=== PATIENT | male | born 1995 | race Caucasian/White ===

== ENCOUNTER 2019-11-08 16:40 | Emergency (ER) | payer OTHER, SELFPAY ==
--- NOTE | 2019-11-08 16:45 | ED.GENADULT ---
HPI - General Adult General Chief complaint: Back Pain/Injury Stated complaint: back pain Time Seen by Provider: 11/08/19 17:03 Source: patient Mode of arrival: ambulatory Limitations: no limitations History of Present Illness HPI narrative: 24-year-old male patient presents to the [facility] with complaints of lower back pain for the past 2 days. Patient states he does have a known lower bulging disc that he had an MRI for about a year ago. Patient states he has had no problems with the bulging disc until recently. Patient denies any numbness or tingling down the legs. Patient denies any loss of bowel or bladder control. Patient states he has been taking Aleve for his symptoms so far. Denies any heat. Related Data Home Medications Medication Instructions Recorded Confirmed naproxen sodium 220 mg tablet 220 mg PO Q12H PRN 08/31/19 11/08/19 Allergies Allergy/AdvReac Type Severity Reaction Status Date / Time No Known Allergies Allergy Unverified 11/08/19 16:56 Review of Systems Review of Systems: Narrative: CONSTITUTIONAL: Denies fever, chills, or sweats. EYES: Denies visual changes, redness, or discharge. ENT: Denies rhinorrhea, congestion, sore throat, or otalgia. CARDIOVASCULAR: Denies chest pain, palpitations, or edema. RESPIRATORY: Denies cough or dyspnea. GASTROINTESTINAL: Denies abdominal pain, nausea, vomiting, or diarrhea. GENITOURINARY: Denies dysuria or hematuria. SKIN: Denies rash or itching. MUSCULOSKELETAL: Positive low back pain, denies joint pain, or myalgia. NEUROLOGIC: Denies headache, numbness, or weakness. PSYCHIATRIC: Denies anxiety or depression. [facility] Past Medical History Medical History Depression GERD (gastroesophageal reflux disease) Family History Family History Mother Hypertension Anemia Father Diabetes mellitus Hypertension Grandparent Diabetes mellitus Heart disease Grandparent , Age 67 of [place] Myocardial infarct Social History Social History Years smoked: 8 Tobacco type: e-cigarettes Second hand tobacco smoke exposure: No Alcohol intake: current Drinks per week: 2 Substance use: never Gender identity (if verbalized by the patient): Male Comments At the time of my signature I agree with nursing past medical history, surgical, social, and family history. There is no relevant family history pertinent to the presenting complaint. Exam Narrative: Exam Narrative: GENERAL: Well-appearing, well-nourished, and in no acute distress. HEAD: Normocephalic, atraumatic. EYES: PERRLA and EOMI. ENT: Nares clear, no rhinorrhea or epistaxis. Mucous membranes moist. NECK: Supple. No lymphadenopathy CHEST: Clear to auscultation. No respiratory distress. HEART: Regular rate and rhythm. No murmur heard. Normal peripheral pulses. ABDOMEN: Soft, nontender, nondistended, normal active bowel sounds. EXTREMITIES: Normal range of motion. No edema. BACK: Patient is able to ambulated without assistance. Pt is seated on the stretcher in no obvouis distress. No surface trauma noted. muscle tenderness to Palpation noted to the lower lumbar on bilateral sides of the spine.. No spasm or mass. No step-offs or deformity noted to the cervical, thoracic or lumbar spine to firm Palpation at the midline. No CVA tenderness to percussion. No saddle anesthesia. ROM: able to stand erect. Normal flexion, extension, Lateral bending and rotation without limitation or complaint of pain. SKIN: Warm, dry, no rash. NEURO: No focal deficits. Alert and oriented x3. Course Vital Signs Vital signs: Vital Signs Temperature 36.9 C 11/08/19 16:53 Pulse Rate 70 11/08/19 16:53 Respiratory Rate 16 11/08/19 16:53 Blood Pressure 157/92 H 11/08/19 16:53 Pulse Oximetry 100 11/08/19 16:53 Temperature 36.9 C
[2019-11-08 16:53] VITALS: BP 157/92; PULSE 70; RESP 16; TEMP 36.9; O2SAT 100
== END 2019-11-08 17:14 | disposition home or self-care (01) ==
PROVIDERS: Emergency Provider Nurse Practitioner Family
DX: M54.5 Low back pain (principal); F17.200 Nicotine dependence, unspecified, uncomplicated; K21.9 Gastro-esophageal reflux disease without esophagitis
CPT/HCPCS: 99203; G0463

== ENCOUNTER → 2019-11-11 12:39 | Outpatient (CLI) | payer OTHER, SELFPAY ==
--- NOTE | ~2019-11-11 | XR_ITS ---
LUMBAR SPINE INDICATION: Back pain for 2 weeks TECHNIQUE: 3 views lumbar spine COMPARISON: None FINDINGS: No fracture, subluxation or dislocation. No evidence for spondylolysis or spondylolisthesi s. Vertebral bodies and disk spaces are preserved. Sacral foramen are symmetric. IMPRESSION: 1: No acute abnormality of the lumbar spine identified. Reviewed, dictated and finalized at location A.
== END ==
LOC: EXPCRAD 12:56
PROVIDERS: PCP Emergency Medicine; Visit Provider Emergency Medicine
DX: M54.5 Low back pain (principal)
CPT/HCPCS: 72100

== ENCOUNTER 2022-06-27 08:40 | Emergency (ER) | payer OTHER, SELFPAY ==
--- NOTE | ~2022-06-27 | XR_ITS ---
EXAMINATION: XR chest 1V portable DATE: 06/27/2022 09:03 INDICATION: Cough and fever. TECHNIQUE: A single frontal view of the chest was obtained. COMPARISON: None. FINDINGS: There is no pneumonia, pleural effusion, pneumothorax. The heart size is normal. IMPRESSION: 1. No acute cardiopulmonary disease. Reviewed, dictated and finalized at location A. [facility] [employer]
[2022-06-27 08:48] VITALS: BP 164/94; PULSE 128; RESP 24; TEMP 39.1; O2SAT 96
--- NOTE | 2022-06-27 08:51 | ECG_ITS ---
Measurements Intervals [place] Rate: 121 P: 32 IA: 147 QRS: 62 QRSD: 88 T: 44 QT: 292 QTc: 415 Interpretive Statements SINUS TACHYCARDIA DELAYED PRECORDIAL R/S TRANSITION ABNORMAL ECG NO PREVIOUS ECG AVAILABLE FOR COMPARISON Electronically Signed On 06-27-2022 9:32:43 [employer] by Oliverio Perry D.O.
[2022-06-27] MEDS: ACETAMINOPHEN 500 MG TABLET 1000 MG PO (08:56)
--- NOTE | 2022-06-27 09:23 | ED.GENADULT ---
HPI - General Adult General Chief complaint: Fever Stated complaint: cough Time Seen by Provider: 06/27/22 08:42 Source: RN notes reviewed History of Present Illness HPI narrative: Patient presents emergency room from home for upper respiratory infection symptoms. Patient states symptoms again 2 days ago. States he has had a cough is productive of clear sputum as well as rhinorrhea and a fever. He states that he does have some chest pain with coughing but no pain at rest he denies any ear pain throat pain shortness of breath abdominal pain nausea vomiting diarrhea or any other symptoms. States he has taken any Tylenol today and is unsure if he took any ibuprofen Related Data Home Medications Medication Instructions Recorded Confirmed dextroamphetamine-amphetamine 20 20 mg PO DAILY 06/27/22 mg tablet (Adderall) Allergies Allergy/AdvReac Type Severity Reaction Status Date / Time No Known Allergies Allergy Verified 06/27/22 08:46 Review of Systems Review of Systems: Gen.: Denies fevers or chills ENT: reports congestion Respiratory: D reports cough CV: Denies chest pain or palpitations GI: Denies abdominal pain nausea, emesis or diarrhea Musculoskeletal: Denies back pain or muscle pain Neuro: Denies numbness, tingling, weakness or focal weakness Skin: Denies rash Except as documented, all other systems reviewed and negative [facility] Past Medical History Medical History (Updated 06/27/22 @ 12:12 by Steven Petersen DO) Depression GERD (gastroesophageal reflux disease) Family History Family History Mother Hypertension Anemia Father Diabetes mellitus Hypertension Grandparent Diabetes mellitus Heart disease Grandparent , Age 67 of [place] Myocardial infarct Social History Social History Years smoked: 8 Tobacco type: e-cigarettes/vaping Second hand tobacco smoke exposure: No Alcohol intake: current Drinks per week: 2 Substance use: never Gender identity (if verbalized by the patient): Male Exam Narrative: APPEARANCE: No acute distress, nontoxic, resting in bed EYES: EOMI HEENT: Normocephalic, atraumatic, bilateral turbinates boggy mild erythema noted posterior pharynx RESPIRATORY: No respiratory distress Clear to auscultation bilaterally with no rhonchi wheezing or rales. CARDIOVASCULAR: Regular rate and rhythm without murmurs rubs or gallops. ABDOMINAL: Soft, nontender, nondistended, no rebound or guarding MUSCULOSKELETAl: Moves all extremities. No clubbing, cyanosis or edema. NEURO: Awake and alert. Following commands, speech normal, no focal deficits SKIN:: Warm, dry. No rashes lesions or abrasions PSYCHIATRIC: Normal affect/mood, Course Course Emergency Course: Discussed with patient results of workup and diagnosis. Discussed need for follow-up with primary care, proper use of medication, and reasons to return to the emergency department. Patient understands and agrees to current treatment plan Vital Signs Vital signs: Vital Signs Temperature 102.3 F H 06/27/22 08:48 Pulse Rate 128 H 06/27/22 08:48 Respiratory Rate 24 H 06/27/22 08:48 Blood Pressure 164/94 H 06/27/22 08:48 Pulse Oximetry 96 06/27/22 08:48 Oxygen Delivery Room Air 06/27/22 08:48 Temperature 100.6 F H 06/27/22 10:32 Pulse Rate 119 H 06/27/22 10:32 Respiratory Rate 20 06/27/22 10:32 Blood Pressure 164/94 H 06/27/22 08:48 Pulse Oximetry 97 06/27/22 10:32 Oxygen Delivery Room Air 06/27/22 08:48 Medical Decision Making Vital Signs Vital Signs: Vital Signs Temperature 102.3 F H 06/27/22 08:48 Pulse Rate 128 H 06/27/22 08:48 Respiratory Rate 24 H 06/27/22 08:48 Blood Pressure 164/94 H 06/27/22 08:48 Pulse Oximetry 96 06/27/22 08:48 Oxygen Delivery Room Air 06/27/22 08:48 Temperature 100.6 F H 06/27/22 10:32
[2022-06-27 09:38] LABS: Influenza A QL RT-PCR Positive (Negative); Influenza B QL RT-PCR Negative (Negative); SARS-CoV-2 RNA PCR Negative
[2022-06-27 10:32] VITALS: PULSE 119; RESP 20; TEMP 38.1; O2SAT 97
[2022-06-27] MEDS: SODIUM CHLORIDE 0.9% IV 1,000 ML 999 ML IV CONT (10:52)
[2022-06-27 10:57] LABS: Basophils Percent Auto 0.3 % (0.2-1.2); Eosinophils Percent Auto 0.3 % (0-4.4); Hematocrit 50.1 % (42.0-52.0); Hemoglobin 16.3 g/dL (14.0-18.0); Immature Granulocyte Absolute 0.02 K/mm3 (0.00-0.031); Immature Granulocyte Percent A 0.2 % (0-0.5); Lymphocytes Absolute Auto 0.64 K/mm3 (0.9-3.2); Lymphocytes Percent Auto 7.2 % (18.3-44.2); Mean Corpuscular HGB Conc 32.5 g/dl (32-36); Mean Corpuscular Hemoglobin 27.3 pg (26-34); Mean Corpuscular Volume 83.9 fl (80-100); Monocytes Absolute Auto 0.8 K/mm3 (0.1-0.6); Monocytes Percent Auto 8.4 % (2.6-8.5); Neutrophils Absolute Auto 7.5 K/mm3 (1.3-6.7); Neutrophils Percent Auto 83.6 % (45.5-73.1); Platelet Count Result 260 k/mm3 (150-375); Red Blood Count 5.97 M/mm3 (4.6-6.20); Red Cell Distribution Width 12.7 % (11.5-14.5); White Blood Count 8.9 K/mm3 (4.5-10.0)
[2022-06-27 11:09] LABS: Alanine Aminotransferase 60 U/L (6-50); Albumin Level 4.9 g/dL (3.5-5.1); Alkaline Phosphatase 84 U/L (38-126); Anion Gap 16 mmol/L (8-16); Aspartate Amino Transferase 54 U/L (17-59); Bilirubin,Total 0.7 mg/dL (0.2-1.3); Blood Urea Nitrogen 16 mg/dL (9-20); Calcium 9.3 mg/dL (8.4-10.2); Carbon Dioxide 20 mmol/L (22-30); Chloride 106 mmol/L (98-107); Estimated CRCL calculation 178 ml/min; Estimated Glomerular Filt Rate > 60; Glucose 125 mg/dL (65-110); Potassium 4.3 mmol/L (3.4-5.0); Sodium 142 mmol/L (137-145)
[2022-06-27 12:20] VITALS: BP 132/86; PULSE 99; RESP 18; TEMP 37.6; O2SAT 99
== END 2022-06-27 12:25 | disposition home or self-care (01) ==
PROVIDERS: Emergency Provider Emergency Medicine; PCP Emergency Medicine
DX: J10.1 Influenza due to other identified influenza virus with other respiratory manifestations (principal); Z20.822 Contact with and (suspected) exposure to COVID-19; F32.9 Major depressive disorder, single episode, unspecified; K21.9 Gastro-esophageal reflux disease without esophagitis
CPT/HCPCS: 36415; 71045; 80053; 85025; 87636; 93005; 96360; 96361; 99283; A9270; J7030

== ENCOUNTER 2022-07-21 19:06 | Emergency (ER) | payer OTHER, SELFPAY ==
[2022-07-21 19:13] VITALS: BP 124/81; PULSE 98; RESP 16; TEMP 37.6; O2SAT 98
--- NOTE | 2022-07-21 19:28 | ED.URI ---
HPI - URI/Sore Throat General Chief Complaint: Upper Respiratory Infection Stated Complaint: uri Time Seen by Provider: 07/21/22 19:28 Source: patient and RN notes reviewed Mode of arrival: ambulatory Limitations: no limitations History of Present Illness HPI Narrative: 26-year-old male presents with concern for fever, sinus congestion drainage, cough, general malaise. Reports he had influenza approximately 3 half weeks ago. He reports she started to feel better for a total about 3 days, then 3 days ago he began having fever, cough, sinus congestion worse than before. He also reports his son is hospitalized with RSV currently. He denies shortness of breath, vomiting or diarrhea MD elicited complaint: cough and sore throat Related Data Home Medications Medication Instructions Recorded Confirmed dextroamphetamine-amphetamine ER 20 mg PO DAILY 07/21/22 07/21/22 20 mg 24hr capsule,extend release Allergies Allergy/AdvReac Type Severity Reaction Status Date / Time No Known Allergies Allergy Verified 07/21/22 19:10 Review of Systems Review of Systems: CONSTITUTIONAL: Reports malaise, chills, sweats, or fever. EYES: Denies visual changes, redness, or discharge. ENT: Reports rhinorrhea, congestion, sinus pain, and sore throat. CARDIOVASCULAR: Denies chest pain, palpitations, or edema. RESPIRATORY: Reports cough. Denies dyspnea. GASTROINTESTINAL: Denies abdominal pain, nausea, vomiting, diarrhea SKIN: Denies rash or itching. MUSCULOSKELETAL: Reports myalgia. NEUROLOGIC: Reports headache. All systems reviewed & are unremarkable except as noted in HPI and below PMFSH Past Medical History Medical History (Updated 07/21/22 @ 19:39 by Joanna Burger NP) Depression GERD (gastroesophageal reflux disease) Family History Family History Mother Hypertension Anemia Father Diabetes mellitus Hypertension Grandparent Diabetes mellitus Heart disease Grandparent , Age 67 of [place] Myocardial infarct Social History Social History Years smoked: 8 Tobacco type: e-cigarettes/vaping Second hand tobacco smoke exposure: No Alcohol intake: current Drinks per week: 2 Substance use: never Gender identity (if verbalized by the patient): Male Comments At time of signature, agree with nursing past medical, surgical, social and family history. There is no relevant family history pertinent to the presenting complaint Exam Narrative: GENERAL: Nontoxic-appearing and in no acute distress. HEAD: Normocephalic EYES: PERRLA, conjunctivae clear ENT: Nares clear, turbinates edematous and erythematous. Mucous membranes moist. TM pearly lino with sharp light reflex bilaterally; no tragal tenderness. Oropharynx not erythematous without lesions. Tonsils not enlarged and without exudate, no drooling, no hoarseness, no trismus, uvula midline. NECK: Supple. No lymphadenopathy CHEST: Clear to auscultation, breath sounds equal. No wheezing, rhonchi, rales, or stridor. No respiratory distress, speaks in full sentences. Cough noted HEART: Regular rate and rhythm. No murmur heard. SKIN: Warm, dry, no rash. NEURO: Alert and oriented x3. PSYCH: Normal mood and affect Course Course Emergency Course: Patient is aware of diagnosis, understands and agrees to treatment plan. Anticipatory guidance given. Patient agrees to follow-up as directed and is aware of reasons to seek care at the emergency department. Portions of this record may have been created with voice recognition software Level of Care: Express Care Visit Vital Signs Vital signs: Vital Signs Temperature 99.7 F H 07/21/22 19:13 Pulse Rate 98 07/21/22 19:13 Respiratory Rate 16 07/21/22 19:13 Blood Pressure 124/81 07/21/22 19:13 Pulse Oximetry 98 07/21/22 19:13 Oxygen Delivery Room Air 07/21/22 19:13 Temperat
== END 2022-07-21 19:54 | disposition home or self-care (01) ==
PROVIDERS: Emergency Provider Nurse Practitioner; PCP Family Medicine
DX: J32.9 Chronic sinusitis, unspecified (principal); J40 Bronchitis, not specified as acute or chronic; F17.290 Nicotine dependence, other tobacco product, uncomplicated; K21.9 Gastro-esophageal reflux disease without esophagitis
CPT/HCPCS: 87420; 99213; G0463